=== PATIENT | male | born 1975 | race Caucasian/White ===

== ENCOUNTER 2019-11-06 05:20 | Day surgery (SDC) | payer BC, OTHER ==
[2019-11-06] MEDS ORDERED: Glycopyrrolate 0.2 MG/ML 2 ML SDV IVPUSH ONE ×2 (05:54→06:00)
[2019-11-06] MEDS ORDERED: Dextrose 5%-Lactated Ringers 1,000 ML IV SCH ×2 (06:00)
[2019-11-06] MEDS ORDERED: fentaNYL 100 MCG/2 ML SDV ONE (07:07)
[2019-11-06] MEDS ORDERED: Midazolam 1 MG/ML 2 ML SDV ONE (07:07)
[2019-11-06] MEDS ORDERED: Propofol 200 MG/20 ML SDV ONE (07:07)
--- NOTE | 2019-11-06 14:00 | OR ---
DATE OF PROCEDURE: 11/06/2019 SURGEON: Ryan Kaufman MD PREOPERATIVE DIAGNOSIS: Worsening gastroesophageal reflux disease, status post previously placed laparoscopic adjustable gastric band. POSTOPERATIVE DIAGNOSES: 1. Marked dilation of esophagus with ulcerated distal esophagus as well as laparoscopic adjustable gastric band. 2. Potential antral gastritis and duodenitis. OPERATIVE PROCEDURE: Upper gastrointestinal endoscopy with antral biopsies for CLOtest. ANESTHESIA: IV sedation. INDICATIONS FOR PROCEDURE: This is a 44-year-old status post laparoscopic adjustable gastric band, having been placed in 2012, in [place], [place]. Initially, the patient had significant weight loss, but is now back up to the identical weight that he was preoperatively, that being 320 pounds. Recently, he has had worsening problems with gastroesophageal reflux disease despite the band having been deflated and H2 blockers. The plan is to proceed with upper GI endoscopy to evaluate the current anatomy. Potential risks including bleeding and perforation were discussed, and the patient wishes to proceed. DETAILS OF PROCEDURE: The patient was taken to the operating room and placed in a left lateral decubitus position. IV sedation was administered, after which the upper GI endoscope was passed orally through the length of the esophagus and into the stomach with retroflexion view of the fundus, and thereafter through the pyloric channel and into the junction of the third and fourth portions of the duodenum. Findings included marked esophageal dilation diffusely. This was particularly prominent in the more distal third of the esophagus. Within the esophagus, there was a large amount of pooled dilute bilious-type material along with some scattered solid fluid, despite the patient having been n.p.o. for in excess of 8 hours. This was associated with marked inflammation and linear ulcerations at the area of esophagogastric junction, in upper aspect of the gastric pouch, likely resulting from the pooled bile and fluid being almost constantly present in the distal esophagus. The scope was easily passed through the imprint of the band over the proximal stomach with the band being appropriately located. Retroflexion revealed band imprint with no evidence of erosion. Within the stomach, there was some scattered retained bile, but some patchy redness in the antrum and duodenal bulb, beyond which the duodenum normalized. At this point, biopsies were obtained from the antrum and sent for CLOtest for H pylori. Minimal bleeding from the biopsy site was seen, and the procedure then concluded. The patient will be a good candidate for conversion to a Norman-en-Y gastric bypass status and will contact the insurance carrier regarding prior authorization. Ryan Kaufman MD /[id number]
== END 2019-11-06 09:00 | disposition home or self-care (01) ==
LOC: JP.SDS 05:20
PROVIDERS: ATTEND Surgery
DX: K29.70 Gastritis, unspecified, without bleeding (principal); K29.80 Duodenitis without bleeding; K22.10 Ulcer of esophagus without bleeding; K21.9 Gastro-esophageal reflux disease without esophagitis; Z98.84 Bariatric surgery status
CPT/HCPCS: 43239; 87081; J2250; J2704; J3010; J3490; J7121

== ENCOUNTER 2019-12-18 09:24 | Inpatient (IN) | payer BC ==
[~2019-12-18 09:24] MED LIST: Dexamethasone 4 MG/ML SDV ONE; Glycopyrrolate 0.2 MG/ML 5 ML MDV ONE; Neostigmine Methylsulfate 1 MG/ML 5 ML Syringe ONE; Ondansetron 4 MG/2 ML SDV ONE; Propofol 200 MG/20 ML SDV ONE; Rocuronium 50 MG/5 ML Vial ONE; Succinylcholine 200 MG/10 ML MDV ONE; cefOXitin 2 GM Vial ONE; fentaNYL 250 MCG/5 ML SDV ONE
[2019-12-18] MEDS ORDERED: Gabapentin 300 MG Cap PO ONE (10:00)
[2019-12-18] MEDS ORDERED: Scopolamine 1.5 MG Transdermal Patch TRDERM SCH (10:00)
[2019-12-18] MEDS ORDERED: Celecoxib 200 MG Cap PO ONE (10:00)
[2019-12-18] MEDS ORDERED: Dextrose 5%-Lactated Ringers 1,000 ML IV SCH (10:30)
[2019-12-18] MEDS ORDERED: cefOXitin 2 GM in Sodium Chloride 0.9% 50 ML IV ONE (11:30)
[2019-12-18] MEDS ORDERED: SODIUM CHLORIDE 0.9% IV ONE (11:45)
[2019-12-18] MEDS ORDERED: Ketamine 500 MG/5 ML MDV IV SCH (11:45)
[2019-12-18] MEDS ORDERED: MAGNESIUM SULFATE IV ONE (11:45)
[2019-12-18] MEDS ORDERED: Ketamine 50 MG in Sodium Chloride 0.9% 49.5 ML IV SCH (11:45)
[2019-12-18] MEDS ORDERED: MAGNESIUM SULFATE IV SCH (11:45)
[2019-12-18] MEDS ORDERED: SODIUM CHLORIDE 0.9% IV SCH (11:45)
[2019-12-18] MEDS ORDERED: fentaNYL 250 MCG/5 ML SDV ONE (12:32)
[2019-12-18] MEDS ORDERED: Labetalol 20 MG/4 ML Syringe ONE (13:11)
[2019-12-18] MEDS ORDERED: hydrOXYzine HCL 100 MG/2 ML SDV IM ONE (14:37)
[2019-12-18] MEDS ORDERED: fentaNYL 100 MCG/2 ML SDV IVPUSH ONE (14:38)
[2019-12-18] MEDS ORDERED: Cyclobenzaprine 10 MG Tab PO PRN (15:41)
[2019-12-18] MEDS ORDERED: HYDROmorphone 0.5 MG/0.5 ML Syringe IVPUSH PRN (16:00)
[2019-12-18] MEDS ORDERED: Labetalol 20 MG/4 ML Syringe IVPUSH PRN (16:00)
[2019-12-18] MEDS ORDERED: Calcium Gluconate 10% 1 GM/10 ML SDV IVPUSH PRN (16:00)
[2019-12-18] MEDS ORDERED: HYDROmorphone 1 MG/ML Syringe IV PRN (16:00)
[2019-12-18] MEDS ORDERED: Metoclopramide 10 MG/2 ML SDV IVPUSH PRN (16:00)
[2019-12-18] MEDS ORDERED: hydrOXYzine HCL 100 MG/2 ML SDV IM PRN (16:00)
[2019-12-18] MEDS ORDERED: Acetaminophen 500 MG Tab PO PRN (16:00)
[2019-12-18] MEDS ORDERED: Ondansetron 4 MG/2 ML SDV IVPUSH PRN (16:00)
[2019-12-18] MEDS ORDERED: diphenhydrAMINE 50 MG/ML SDV IVPUSH PRN (16:00)
[2019-12-18] MEDS ORDERED: MVI, Adult with Vitamin K 10 ML, Thiamine 200 MG, Chromium/Copper/Mang/Selen/Zn 1 ML in... IV SCH ×4 (17:00)
[2019-12-18] MEDS: Acetaminophen 500 MG Tab PO SCH ×2 (17:01→23:47)
[2019-12-18] MEDS ORDERED: Pantoprazole 40 MG Vial IVPUSH SCH (20:00)
[2019-12-18] MEDS: Heparin Sodium 5,000 Units/ML Vial SUBCUT SCH (20:24)
[2019-12-18] MEDS: cefOXitin 2 GM in Sodium Chloride 0.9% 50 ML IV SCH (20:30)
[2019-12-18] MEDS: Gabapentin 250 MG/5 ML Solution ML 470 ML Bottle PO SCH (20:36)
[2019-12-18] MEDS: Dextrose 5%-Lactated Ringers 1,000 ML IV SCH (23:43)
[2019-12-19] MEDS: cefOXitin 2 GM in Sodium Chloride 0.9% 50 ML IV SCH ×2 (02:14→08:14)
[2019-12-19] MEDS ORDERED: Iopamidol 612 MG/ML 50 ML SDV IV PRN (04:10)
[2019-12-19] MEDS: Dextrose 5%-Lactated Ringers 1,000 ML IV SCH (06:08)
[2019-12-19] MEDS ORDERED: Ondansetron 4 MG Tab.DIS PO PRN (07:10)
[2019-12-19] MEDS ORDERED: hydrOXYzine HCl 25 MG Tab PO PRN (07:13)
[2019-12-19] MEDS ORDERED: Dextrose 5%-Lactated Ringers 1,000 ML IV SCH (07:15)
[2019-12-19] MEDS ORDERED: Zolpidem 5 MG Tab PO PRN (07:32)
[2019-12-19] MEDS: Celecoxib 200 MG Cap PO SCH ×2 (08:15→20:49)
[2019-12-19] MEDS: Heparin Sodium 5,000 Units/ML Vial SUBCUT SCH ×2 (08:15→20:49)
[2019-12-19] MEDS: Gabapentin 250 MG/5 ML Solution ML 470 ML Bottle PO SCH ×3 (08:15→20:49)
[2019-12-19] MEDS: Acetaminophen 500 MG Tab PO SCH ×3 (08:15→23:42)
--- NOTE | 2019-12-19 09:32 | PN ---
DATE OF SERVICE: 12/19/2019 SUBJECTIVE: Jony had another plain film of the abdomen, contrast did go through, looks better. Oral intake was 680 and output 1500, and RODRÍGUEZ put out 145 mL of a light-pink drainage. He has been afebrile. Pain has been controlled per energy protocol. He has no questions or concerns. OBJECTIVE: GENERAL: Jony Carlton is a pleasant 44-year-old male. He is alert and orientated. VITAL SIGNS: TPR at 0211 hours 37.0, 66, 16, and blood pressure 105/59. HEENT: Negative. NECK: Supple. HEART: Regular rate and rhythm. LUNGS: Clear. ABDOMEN: Dressing is dry and intact. Abdominal binder is on. EXTREMITIES: Without peripheral edema. ASSESSMENT: Diagnostic laparoscopy with: 1. Formation of Norman-en-Y gastric bypass surgery. 2. Liver biopsy. 3. Removal of laparoscopic gastric band system. 4. Partial gastrectomy for postoperative diagnoses; intolerance to laparoscopic gastric band, continued morbid obesity, SP band placement, portion of the stomach devascularized after take down of laparoscopic gastric band, and marked hepatomegaly. Date of procedure: 12/18/2019. Surgeon: Ryan Kaufman MD. PLAN: 1. Check one more abdominal x-ray. This was done. 2. Dressing off, october shower. 3. Step 2 gastric bypass diet without cereal. 4. Decrease IV to 100 mL/h. 5. Zofran ODT 4 mg q.4 hours p.r.n. nausea. 6. Discontinue IV Dilaudid. 7. Communication order for 3 med cups per hour, record at bedside; Atarax, hydroxyzine, 25 mg every 4 hours p.r.n. pain; and Ambien 10 mg p.o. bedtime p.r.n. insomnia, which the patient takes at home. 8. We will evaluate p.r.n. or in the a.m. Samara Gerard PA-C /[id number]
[2019-12-19] MEDS ORDERED: diphenhydrAMINE 25 MG Cap PO PRN (12:47)
[2019-12-19] MEDS ORDERED: Metoclopramide 10 MG Tab PO PRN (12:47)
[2019-12-19] MEDS: SCOPOLAMINE PATCH CHECK TOP SCH (13:38)
[2019-12-19] MEDS ORDERED: MVI, Adult with Vitamin K 10 ML, Thiamine 200 MG, Chromium/Copper/Mang/Selen/Zn 1 ML in... IV SCH ×4 (16:00)
[2019-12-19] MEDS ORDERED: Pantoprazole 40 MG Delayed-Release Granules 1 Packet PO SCH (16:30)
[2019-12-20] MEDS ORDERED: Magnesium Hydroxide 400 MG/5 ML Susp 30 ML Cup PO PRN (07:28)
[2019-12-20] MEDS: SCOPOLAMINE PATCH CHECK TOP SCH (08:45)
[2019-12-20] MEDS: Acetaminophen 500 MG Tab PO SCH (08:55)
[2019-12-20] MEDS: Gabapentin 250 MG/5 ML Solution ML 470 ML Bottle PO SCH (08:55)
[2019-12-20] MEDS: Celecoxib 200 MG Cap PO SCH (08:55)
[2019-12-20] MEDS: Heparin Sodium 5,000 Units/ML Vial SUBCUT SCH (08:55)
[2019-12-20] MEDS ORDERED: Cyanocobalamin (Vitamin B12) 1,000 MCG/ML SDV IM ONE (09:00)
--- NOTE | 2019-12-21 09:25 | CR ---
[facility] HISTORY: Postbariatric surgery FINDINGS: Patient swallowed water-soluble contrast. Upright views of the abdomen show no evidence of extravasation or obstruction. There is a surgical drain in the epigastric region. IMPRESSION: Status post bariatric surgery No extravasation or obstruction seen
--- NOTE | 2019-12-21 09:45 | OR ---
DATE OF PROCEDURE: 12/18/2019 SURGEON: Ryan Kaufman MD PREOPERATIVE DIAGNOSIS: Status post laparoscopic adjustable gastric band with persistent morbid obesity and increasing intolerance to band. POSTOPERATIVE DIAGNOSES: 1. Status post laparoscopic adjustable gastric band with persistent morbid obesity and increasing intolerance to band. 2. Marked hepatomegaly. 3. Devascularized portion of stomach, status post takedown of laparoscopic adjustable gastric band. OPERATIONS AND PROCEDURES: Diagnostic laparoscopy with: 1. Formation of Norman-en-Y gastric bypass with long limb gastroenterostomy (51936). 2. [place]-Cut needle liver biopsy (00982). 3. Removal of laparoscopic adjustable gastric band system (02270). 4. Partial gastrectomy (91968). ANESTHESIA: General. [employer]: Samara Gerard PA-C INDICATION FOR PROCEDURE: This is a 44-year-old male, status post laparoscopic adjustable gastric band placement, presenting with continued morbid obesity, as well as increasing intolerance to the band system with marked reflux symptoms related to esophageal dilation above the band. The plan is to proceed with removal of the band system and conversion to Norman-en-Y gastric bypass. Potential risks including bleeding, infection, injury to underlying viscera, problems with leaks from the gastrointestinal tract, as well as possibility of bowel obstruction over time, and lastly the remote possibility of cardiopulmonary, septic, or hemorrhagic complications leading to were discussed, and the patient wishes to proceed. DETAILS OF PROCEDURE: The patient was taken to the operating room. After general endotracheal anesthesia was induced, he was placed in a lithotomy position and the abdomen prepped and draped. At 15 cm inferior and 5 cm left of the xiphoid process, a transverse incision was made and the peritoneal cavity entered under direct vision with an Optiview trocar, inflated to 15 mmHg pressure with CO2. Following this, 5 additional trocars were placed across the upper and mid abdomen and bilateral transversus abdominis plane blocks were placed. The patient was noted to have marked hepatomegaly with liver being grossly fatty infiltrated. [place]-Cut needle biopsies were obtained from left lobe of the liver. Minimal bleeding from biopsy sites was controlled with electrocautery. Attention was then taken to the upper abdomen. The liver was retracted anteriorly. Some adhesions to the liver and the area around the band were taken down with Harmonic scalpel, and then following this, the band was freed up from the fibrous attachments surrounding it, using electrocautery, and once this was accomplished, the band was divided and the port tubing adjacent to the band was transected, and the main band was then removed and taken out of the abdomen through left lateral trocar site. The pouch formation was then initiated with division of the stomach at the level of the band fibrotic imprint with a series of VITA black loads. After completion of the pouch formation, the patient was noted to have significant amount of stomach that was devascularized, as well as deserosalized, due to the dissection as part of removal of the band. This was excised by means of series of VITA black and purple loads, and the specimen was delivered from the field. Attention was taken to the small bowel. The omentum was divided in the midline up to the level of the transverse colon with Harmonic Scalpel. This allowed identification of small bowel at the ligament of Treitz. Small bowel was then traced 200 cm distal to that point and was divided transversely with a VITA stapler. Small bowel was then traced out additional 150 cm, where the [id number] enteroenterostomy was accomplished with internal firing of the Endo-VITA 60 mm stapler. Common opening was then closed transversely with the same stapler, and angles of anastomosis and mesenteric defect approximated with some 0 Ethibond stitch, along with fibrin sealant. Divided end of the Norman limb was then from the mesentery for a few centimeters, which allowed an antecolic position of the Norman limb up to the level of the gastric pouch without tension. At this point, the anvil of a 25 mm EEA stapler was attached to [place] sump type tube. Due to the thickened nature of the tissue at the level of the gastric pouch, a 4.8 mm staple line was selected in this case for the EEA stapler. The anvil was then attached to [place] sump type tube, brought down through the mouth and taken out through a small opening in the gastric pouch, allowing the anvil likewise to be pulled down to within the gastric pouch. The divided end of the Norman limb was then opened and main body of the EEA stapler passed several centimeters into the lumen of the Norman limb, brought up the anvil, united with it, thus creating the gastrojejunostomy. Upon removal of the stapler, double donuts of the mucosa were noted within it. Small bowel was closed off with a vascular staple line. Gastrojejunostomy was reinforced with 3-0 Vicryl seromuscular stitch, along with fibrin sealant. Leak test was accomplished with injection of 120 mL of air in the gastric pouch while it was submerged with a cefoxitin-containing saline solution. No leaks were identified. A single Doimngo-Berry drain was taken out through the left lateral trocar site and positioned adjacent to the gastrojejunostomy and from there up into the splenic fossa. Trocars were removed and peritoneal cavity deflated. Incisions were closed with 4-0 Vicryl skin stitch, which was also used to affix the drain. The port was then removed by means of incision over the port and carried down through skin and subcutaneous tissue. The fibrous attachments around the port were then divided with electrocautery, and the port and its associated tubing were then removed without difficulty. That incision was closed with 3-0 and 4-0 Vicryl stitch deep and a 4-0 Vicryl skin stitch, and the patient was taken to the recovery room in satisfactory condition. Physician certified nursing assistant instructor, Samara Gerard, played an essential role in assisting in this case, helping to position the patient, retract structures as needed, as well as suturing and cutting sutures when indicated. Her presence improved patient safety and decreased the operative time. Ryan Kaufman MD /[id number]
--- NOTE | 2019-12-21 11:38 | DISCH ---
FINAL DIAGNOSES: 1. Morbid obesity. 2. Status post laparoscopic adjustable gastric band placement. 3. History of proteinuria. 4. History of obstructive sleep apnea. 5. Marked hepatomegaly. OPERATIVE PROCEDURE: This was done on 12/18/2019. Diagnostic laparoscopy with: 1. Formation of Norman-en-Y gastric bypass. 2. [place]-Cut needle liver biopsy. 3. Removal of laparoscopic adjustable gastric band system. 4. Partial gastrectomy. SUMMARY: This is a 44-year-old gentleman with long-standing morbid obesity, status post laparoscopic gastric band placement done in [place], [place], but has had persistent problems with morbid obesity. He was also noted to have quite a bit in the way of dilation of esophagus at the time of upper endoscopy, consistent with some intolerance of the gastric band that he has been experiencing. On the day of admission, the patient underwent a diagnostic laparoscopy with removal of band system, formation of gastric bypass, and liver biopsy. A portion of the stomach was ischemic after formation of the pouch and removal of the band, and this was excised. Clinically, and the patient has done well postoperatively. He will be discharged home on a step-2 diet until the first appointment, which will be with Samara Gerard on 12/29/2019. He will be continuing his only home medication, which is Ambien on a p.r.n. basis, and then also he will be sent home with Tylenol 1 g q.i.d. p.r.n. and Celebrex 200 mg b.i.d. p.r.n. will be sent home with the patient.
== END 2019-12-20 11:45 | disposition home or self-care (01) | DRG 403 ==
LOC: JP.SDSSCHI 09:24 → JP.SDS 09:25 → EDSTATUS 09:45 → JP.MS 13:50
PROVIDERS: ADMIT Surgery; ATTEND Surgery
PROC: 0D164ZA Bypass Stomach to Jejunum, Percutaneous Endoscopic Approach (ICD-10-PCS; principal; 2019-12-18)
PROC: 0FB24ZX Excision of Left Lobe Liver, Percutaneous Endoscopic Approach, Diagnostic (ICD-10-PCS; 2019-12-18)
PROC: 0DB64ZZ Excision of Stomach, Percutaneous Endoscopic Approach (ICD-10-PCS; 2019-12-18)
DX: E66.01 Morbid (severe) obesity due to excess calories (principal); G47.33 Obstructive sleep apnea (adult) (pediatric); R16.0 Hepatomegaly, not elsewhere classified; R80.9 Proteinuria, unspecified; Z79.899 Other long term (current) drug therapy; Z87.891 Personal history of nicotine dependence; Z68.41 Body mass index [BMI] 40.0-44.9, adult
CPT/HCPCS: 36415; 74240; 74240-26; 82962; 86850; 86900; 86901; 93005; 94762; A9270-GY; C9113; J0171; J0330; J0694; J1100; J1644; J2405; J2704; J2710; J2795; J3010; J3410; J3411; J3420; J3475; J3490; J7050; J7121; Q9967